=== PATIENT | male | born 2000 | race Caucasian/White ===

== ENCOUNTER 2020-12-19 14:04 | Emergency (ER) | payer OTHER ==
[~2020-12-19] VITALS: Ht 144.8 cm; Wt 108.9 kg
[2020-12-19] MEDS ORDERED: Crutch1 EACH MISC (15:39)
== END 2020-12-19 16:05 | disposition home or self-care (01) ==
LOC: ER 14:04
DX: S93.402A Sprain of unspecified ligament of left ankle, initial encounter (principal); Z88.8 Allergy status to other drugs, medicaments and biological substances; X50.1XXA Overexertion from prolonged static or awkward postures, initial encounter
CPT/HCPCS: 29515; 73630; 99283-25